=== PATIENT | male | born 1955 | race Caucasian/White ===

== ENCOUNTER 2022-02-14 11:04 | Day surgery (SDC) | payer MEDICARE, BC ==
[~2022-02-14] VITALS: Ht 177.2 cm; Wt 96.9 kg
[2022-02-14] VITALS (9 sets, daily range): BP systolic 155–185; BP diastolic 70–97
[2022-02-14] MEDS ORDERED: diphenhydrAMINE 25mg capsule PO PRN (11:35)
[2022-02-14] MEDS ORDERED: CELE-85 PO (12:07)
[2022-02-14] MEDS ORDERED: ROSU20TA31 PO (12:07)
[2022-02-14] MEDS ORDERED: vitamin d3 PO (12:07)
[2022-02-14] MEDS ORDERED: CYAN500T71 PO (12:07)
[2022-02-14] MEDS ORDERED: EMPA1TAB19 PO (12:07)
[2022-02-14] MEDS ORDERED: OMEG-79 PO (12:07)
[2022-02-14] MEDS ORDERED: INDLA60C PO (12:07)
[2022-02-14] MEDS ORDERED: LINA5TAB4 PO (12:07)
[2022-02-14] MEDS ORDERED: NITR4.9S4 (12:07)
[2022-02-14] MEDS ORDERED: ASCO500C17 PO (12:07)
[2022-02-14] MEDS ORDERED: FENO145T25 PO (12:07)
[2022-02-14] MEDS ORDERED: LEVO150T8 PO (12:07)
[2022-02-14] MEDS ORDERED: ASPI-1265 PO (12:07)
[2022-02-14] MEDS ORDERED: SPIR25TA5 PO (12:07)
[2022-02-14] MEDS ORDERED: FLO0.4C PO (12:07)
[2022-02-14 12:11] LABS: BASOPHILS % (AUTO) 0.4 % (0-1); EOSINOPHILS # (AUTO) 0.3 X10'3 (0-0.9); EOSINOPHILS % (AUTO) 3.8 % (0-6); LYMPHOCYTES # (AUTO) 1.2 X10'3 (1.1-4.8); LYMPHOCYTES % (AUTO) 17.7 % (21-51); MEAN CORPUSCULAR HEMOGLOBIN 29.4 PG (27.0-31.0); MEAN CORPUSCULAR HGB CONC 34.1 g/dL (33.0-36.5); MEAN CORPUSCULAR VOLUME 86.4 FL (78-98); MEAN PLATELET VOLUME 9.2 FL (7.4-10.4); MONOCYTES # (AUTO) 0.5 X10'3 (0-0.9); MONOCYTES % (AUTO) 7.4 % (2-12); NEUTROPHILS % (AUTO) 70.7 % (42-75); PLATELET COUNT 105 X10'3 (140-440); RED BLOOD COUNT 5.79 X10'6 (4.70-6.10); RED CELL DISTRIBUTION WIDTH 13.8 % (11.5-14.5)
[2022-02-14 12:33] LABS: ALBUMIN 3.8 G/DL (3.4-5.0); ANION GAP 8 (8-16); BLOOD UREA NITROGEN 21 MG/DL (7-18); BUN/CREATININE RATIO 19.6 (5.4-32.0); CALCIUM 9.7 MG/DL (8.5-10.1); CHLORIDE 109 MMOL/L (99-107); CREATININE 1.07 MG/DL (0.60-1.10); GLUCOSE 147 MG/DL (70-104); MAGNESIUM 1.8 MG/DL (1.5-2.4); POTASSIUM 3.9 MMOL/L (3.5-5.1); SODIUM 142 MMOL/L (135-145); TOTAL CARBON DIOXIDE 25.1 MMOL/L (24-32); eGFR 69 ML/MIN
[2022-02-14] MEDS ORDERED: fentaNYL/PF 50MCG/1 ML 2ML syringe ONE (14:11)
[2022-02-14] MEDS ORDERED: heparin 1,000unit/ml 10ml vial 10 ML ONE (14:11)
[2022-02-14] MEDS ORDERED: verapamil 2.5 mg/ml inj IV ONE (14:11)
[2022-02-14] MEDS ORDERED: LIDOcaine 1%/PF 5ML 10 MG/ML VIAL ONE ×2 (14:11→15:30)
[2022-02-14] MEDS ORDERED: nitroGLYCERIN-Tridil 50MG/D5W 250 ML IV ONE (14:11)
[2022-02-14] MEDS ORDERED: midazolam 1 mg/ML 2ml injection ONE ×2 (14:11→14:41)
[2022-02-14] MEDS ORDERED: iohexol 350MG/ML 100ml bottle IV ONE ×4 (14:12→16:15)
[2022-02-14] MEDS ORDERED: atropine 0.1mg/ml 10ml syringe ONE (15:32)
[2022-02-14] MEDS ORDERED: heparin 1,000 UNITS/NS 500ml 500 ML ONE (15:40)
[2022-02-14] MEDS ORDERED: ticagrelor 90mg tablet ONE (16:30)
[2022-02-14] MEDS ORDERED: proCHLORperazine 10 MG/2 ml inj IV PRN (17:25)
[2022-02-14] MEDS ORDERED: normal saline 1000ml 1,000 ML IV SCH (17:25)
[2022-02-14] MEDS ORDERED: ondansetron/PF 4mg/2ml inj IV PRN (17:25)
[2022-02-14] MEDS ORDERED: HYDROcodone/acetaminophen 5mg/325mg tablet PO PRN (17:25)
[2022-02-14] MEDS ORDERED: HYDROcodone/acetaminophen 10/325mg tab PO PRN (17:25)
== END 2022-02-14 20:30 | disposition home or self-care (01) ==
LOC: SSTAY O 11:04
PROVIDERS: ATTEND Internal Medicine Cardiovascular Disease
DX: I25.110 Atherosclerotic heart disease of native coronary artery with unstable angina pectoris (principal); I25.810 Atherosclerosis of coronary artery bypass graft(s) without angina pectoris; E11.9 Type 2 diabetes mellitus without complications; I10 Essential (primary) hypertension; E78.00 Pure hypercholesterolemia, unspecified; M47.9 Spondylosis, unspecified; Z79.899 Other long term (current) drug therapy; Z95.5 Presence of coronary angioplasty implant and graft; Z95.1 Presence of aortocoronary bypass graft; Z96.651 Presence of right artificial knee joint; Z98.890 Other specified postprocedural states; Z88.8 Allergy status to other drugs, medicaments and biological substances; Z91.013 Allergy to seafood
CPT/HCPCS: 36415; 80048; 82948; 83735; 85025; 85610; 93459; 99152; 99153; C1725; C1751; C1760; C1769; C1874; C1892; C1894; C9600; J1644; J2250; J3010; J3490; J7030; Q0163; Q9967; 93458; A4620; A5120; A6258; A6449; J0461

== ENCOUNTER 2022-03-28 09:13 | Day surgery (SDC) | payer MEDICARE, BC ==
[2022-03-28] VITALS (9 sets, daily range): BP systolic 124–153; BP diastolic 72–84
[~2022-03-28] VITALS: Ht 177.8 cm; Wt 95.4 kg
[~2022-03-28 09:13] MED LIST: ASCO500C17 PO; ASPI-1265 PO; CELE-85 PO; CYAN500T71 PO; EMPA1TAB19 PO; FENO145T25 PO; FLO0.4C PO; INDLA60C PO; LEVO150T8 PO; LINA5TAB4 PO; OMEG-79 PO; ROSU20TA31 PO; SPIR25TA5 PO; TICA90TA PO; vitamin d3 PO
[2022-03-28] MEDS ORDERED: diphenhydrAMINE 25mg capsule PO PRN (09:30)
[2022-03-28] MEDS ORDERED: normal saline 1,000 ML IV SCH (09:30)
[2022-03-28] MEDS ORDERED: LIOT5TAB10 PO (09:57)
[2022-03-28 10:13] LABS: BASOPHILS % (AUTO) 0.6 % (0-1); EOSINOPHILS # (AUTO) 0.6 X10'3 (0-0.9); EOSINOPHILS % (AUTO) 8.7 % (0-6); HEMATOCRIT 51.1 % (42.0-52.0); HEMOGLOBIN 17.1 g/dl (14.0-17.9); LYMPHOCYTES # (AUTO) 1.3 X10'3 (1.1-4.8); LYMPHOCYTES % (AUTO) 18.4 % (21-51); MEAN CORPUSCULAR HEMOGLOBIN 29.6 PG (27.0-31.0); MEAN CORPUSCULAR HGB CONC 33.5 g/dL (33.0-36.5); MEAN CORPUSCULAR VOLUME 88.3 FL (78-98); MEAN PLATELET VOLUME 9.2 FL (7.4-10.4); MONOCYTES # (AUTO) 0.5 X10'3 (0-0.9); MONOCYTES % (AUTO) 6.8 % (2-12); NEUTROPHILS # (AUTO) 4.5 X10'3 (1.8-7.7); NEUTROPHILS % (AUTO) 65.5 % (42-75); PLATELET COUNT 102 X10'3 (140-440); RED BLOOD COUNT 5.79 X10'6 (4.70-6.10); WHITE BLOOD COUNT 6.9 X10'3 (4.5-11.0)
[2022-03-28] MEDS ORDERED: ROSU10TA28 PO (10:19)
[2022-03-28 10:21] LABS: ALBUMIN 3.9 G/DL (3.4-5.0); ANION GAP 9 (8-16); BLOOD UREA NITROGEN 23 MG/DL (7-18); BUN/CREATININE RATIO 23.2 (5.4-32.0); CALCIUM 9.9 MG/DL (8.5-10.1); CHLORIDE 108 MMOL/L (99-107); CREATININE 0.99 MG/DL (0.60-1.10); GLUCOSE 145 MG/DL (70-104); MAGNESIUM 1.9 MG/DL (1.5-2.4); POTASSIUM 4.1 MMOL/L (3.5-5.1); SODIUM 143 MMOL/L (135-145); TOTAL CARBON DIOXIDE 25.8 MMOL/L (24-32); eGFR 75 ML/MIN
[2022-03-28] MEDS ORDERED: MELA5CAP PO (10:23)
[2022-03-28] MEDS ORDERED: NITRO (10:23)
[2022-03-28] MEDS ORDERED: midazolam 1 mg/ML 2ml injection ONE ×2 (12:09→12:55)
[2022-03-28] MEDS ORDERED: iohexol 350MG/ML 100ml bottle IV ONE ×3 (12:10→14:01)
[2022-03-28] MEDS ORDERED: LIDOcaine 1% 30ml preserv. free vial ONE (12:10)
[2022-03-28] MEDS ORDERED: heparin 1,000unit/ml 10ml vial 10 ML ONE ×2 (12:10→14:04)
[2022-03-28] MEDS ORDERED: fentaNYL/PF 50MCG/1 ML 2ML syringe ONE (12:10)
[2022-03-28] MEDS ORDERED: hydrALAZINE 20mg/ml inj. IV ONE (14:23)
[2022-03-28] MEDS ORDERED: ticagrelor 90mg tablet ONE (14:32)
[2022-03-28] MEDS ORDERED: cloNIDine 0.1 mg tablet PO ONE (15:00)
[2022-03-28] MEDS ORDERED: ondansetron/PF 4mg/2ml inj IV PRN (15:10)
[2022-03-28] MEDS ORDERED: HYDROcodone/acetaminophen 10/325mg tab PO PRN (15:10)
[2022-03-28] MEDS ORDERED: HYDROcodone/acetaminophen 5mg/325mg tablet PO PRN (15:10)
== END 2022-03-28 18:00 | disposition home or self-care (01) ==
LOC: SSTAY O 09:13
PROVIDERS: ATTEND Internal Medicine Cardiovascular Disease
DX: R94.39 Abnormal result of other cardiovascular function study (principal); I25.110 Atherosclerotic heart disease of native coronary artery with unstable angina pectoris; I10 Essential (primary) hypertension; E11.9 Type 2 diabetes mellitus without complications; E78.00 Pure hypercholesterolemia, unspecified; Z79.899 Other long term (current) drug therapy; Z98.890 Other specified postprocedural states; Z86.73 Personal history of transient ischemic attack (TIA), and cerebral infarction without residual deficits; Z96.651 Presence of right artificial knee joint; Z88.8 Allergy status to other drugs, medicaments and biological substances
CPT/HCPCS: 36415; 80048; 82948; 83735; 85025; 85610; 93005; 93459; 99152; 99153; C1725; C1751; C1753; C1760; C1769; C1874; C1892; C1894; C9600; C9604; J0360; J1644; J2250; J3010; J3490; J7030; Q0163; Q9967; A4620; A6258